=== PATIENT | female | born 1955 | race Caucasian/White ===

== ENCOUNTER 2024-08-14 14:00 | Outpatient (CLI) | payer MEDICARE, OTHER ==
[~2024-08-14 14:00] MED LIST: ATOR20TA66 PO; FLUT16SP2 BOTHNARES; HYDR-4383 PO; LOSA50TA64 PO; MULT-1074 PO; VITC500T PO; iohexol 300mg/ml 100ml inj. ONE
== END 2024-08-14 23:59 | disposition home or self-care (01) ==
LOC: RAD 14:00
PROVIDERS: ATTEND Family Medicine
DX: C38.3 Malignant neoplasm of mediastinum, part unspecified (principal); K44.9 Diaphragmatic hernia without obstruction or gangrene; R91.1 Solitary pulmonary nodule
CPT/HCPCS: 71260; Q9967

== ENCOUNTER 2024-08-27 12:01 | Outpatient (CLI) | payer MEDICARE, OTHER ==
[~2024-08-27 12:01] MED LIST changes: -iohexol 300mg/ml 100ml inj. ONE
== END 2024-08-27 23:59 | disposition home or self-care (01) ==
LOC: RAD 12:01
PROVIDERS: ATTEND Internal Medicine Gastroenterology
DX: C38.3 Malignant neoplasm of mediastinum, part unspecified (principal); K44.9 Diaphragmatic hernia without obstruction or gangrene; K22.2 Esophageal obstruction; K22.9 Disease of esophagus, unspecified; Z85.29 Personal history of malignant neoplasm of other respiratory and intrathoracic organs
CPT/HCPCS: 74220